=== PATIENT | male | born 1985 | race Caucasian/White ===

== ENCOUNTER 2025-01-26 15:38 | Inpatient (IN) | payer OTHER ==
[2025-01-26 16:13] VITALS: BMI 32.9
[2025-01-26] MEDS ORDERED: IBUPROFEN 400 MG TABLET (FP) PO PRN (16:31)
[2025-01-26] MEDS ORDERED: ACETAMINOPHEN 325 MG TABLET (FP) PO PRN (16:31)
[2025-01-26] MEDS ORDERED: MAG HYDROX/AL HYDROX/SIMETH 30 ML UNIT-DOSE CUP PO PRN (16:31)
[2025-01-26] MEDS ORDERED: LOPERAMIDE HCL 2 MG CAPSULE PO PRN (16:31)
[2025-01-26] MEDS ORDERED: NICOTINE POLACRILEX 2 MG GUM BUC PRN (16:31)
[2025-01-26] MEDS ORDERED: MAGNESIUM HYDROX 2400MG/30ML ORAL SUSPENSION 30 ML CUP PO PRN (16:31)
[2025-01-26] MEDS ORDERED: ONDANSETRON *ODT* 4 MG TABLET SL PRN (16:31)
[2025-01-26] MEDS ORDERED: BENZOCAINE/MENTHOL (CHLORASEPTIC ) LOZENGE MM PRN (16:31)
[2025-01-26] MEDS ORDERED: BENZONATATE 200 MG CAPSULE PO PRN (16:31)
[2025-01-26] MEDS ORDERED: IBUPROFEN 600 MG TABLET (FP) PO PRN (16:31)
[2025-01-26] MEDS ORDERED: POLYETHYLENE GLYCOL (HEALTHYLAX) 3350 17 GM PACKET PO PRN (16:31)
[2025-01-26] MEDS ORDERED: NALOXONE (NARCAN) HCL 4 MG/0.1 ML SPRAY NS PRN (16:31)
[2025-01-26] MEDS ORDERED: guaiFENesin 600 MG TABLET.ER (FP) PO PRN (16:31)
[2025-01-26] MEDS: chlordiazePOXIDE HCL 25 MG CAPSULE PO PRN (19:43)
[2025-01-26] MEDS: NALTREXONE HCL 50 MG TABLET PO ONE (19:44)
[2025-01-26] MEDS: chlordiazePOXIDE HCL 25 MG CAPSULE PO SCH (22:07)
[2025-01-26] MEDS: MELATONIN 5 MG TABLETS PO SCH (22:07)
[2025-01-26] MEDS: THIAMINE 100 MG TABLET PO SCH (22:07)
[2025-01-26] MEDS: TRIMETHOBENZAMIDE HCL 200MG/2ML INJ IM ONE (23:25)
[2025-01-26] MEDS: LORazepam 2 MG/ML SDV VIAL IM ONE (23:25)
[2025-01-27] MEDS: levETIRAcetam 500 MG TABLET (FP) PO SCH (00:07)
[2025-01-27] MEDS: NALTREXONE HCL 50 MG TABLET PO SCH (10:13)
[2025-01-27] MEDS: hydrOXYzine PAMOATE 25 MG CAPSULE (FP) PO PRN (10:13)
[2025-01-27] MEDS: METHOCARBAMOL 500 MG TABLET PO PRN (10:13)
[2025-01-27] MEDS: PRENATAL VITAMINS W/ FOLIC ACID TABLET (FP) PO SCH (10:51)
[2025-01-27] MEDS: amLODIPine BESYLATE 5 MG TABLET (FP) PO SCH (11:22)
[2025-01-27 11:57] LABS: HEMATOCRIT 46.8 % (35.4-49); HEMOGLOBIN 15.6 GM/dL (11.7-16.9); MCH 31.8 pg (25.7-33.7); MCHC 33.3 g/dl (32.0-35.9); MEAN CELL VOLUME 95.7 fl (80-96); MEAN PLT VOLUME 7.4 fl (7.5-11.1); PLATELET COUNT 193 10^3/uL (134-434); RBC 4.89 M/mm3 (4.00-5.60); RDW 13.6 % (11.9-15.9); WHITE BLOOD COUNT 9.4 K/mm3 (4.0-10.0)
[2025-01-27 11:59] LABS: CHLORIDE 99 mmol/L (98-107); POTASSIUM 3.8 mmol/L (3.5-5.1); SODIUM 139 mmol/L (136-145)
[2025-01-27 12:06] LABS: BLOOD UREA NITROGEN 9.2 mg/dL (7-18); CALCIUM 9.1 mg/dL (8.5-10.1)
[2025-01-27 12:07] LABS: ALBUMIN 3.7 g/dl (3.4-5.0); ANION GAP 10 mmol/L (4-13); CO2 29 mmol/L (21-32); GLUCOSE,RANDOM 134 mg/dL (74-106)
[2025-01-27 12:10] LABS: CREATININE 1.2 mg/dL (0.55-1.3); SGPT/ALT 202 U/L (13-61)
[2025-01-27 12:11] LABS: BILIRUBIN,TOTAL 0.8 mg/dL (0.2-1); SGOT/AST 158 U/L (15-37)
[2025-01-27 12:12] LABS: ALK PHOS 79 U/L (45-117); TOT PROT 7.5 g/dl (6.4-8.2)
[2025-01-27] MEDS: MIRTAZAPINE 15 MG TABLET (FP) PO SCH (22:07)
[2025-01-27 23:15] LABS: HIV INTERPRETATION NEGATIVE (NEGATIVE)
[2025-01-28] MEDS: chlordiazePOXIDE HCL 25 MG CAPSULE PO SCH (05:27)
[2025-01-29] MEDS ORDERED: chlordiazePOXIDE HCL 10 MG CAPSULE PO PRN
[2025-01-29] MEDS: chlordiazePOXIDE HCL 10 MG CAPSULE PO SCH (05:32)
[2025-01-29] MEDS: DICYCLOMINE HCL 10 MG CAPSULE PO PRN (10:24)
[2025-01-29] MEDS ORDERED: LORazepam 1 MG TABLET PO PRN (14:03)
[2025-01-29] MEDS: LORazepam 1 MG TABLET PO SCH (17:33)
[2025-01-29] MEDS: FAMOTIDINE 20 MG TABLET PO SCH (22:25)
[2025-01-30] MEDS ORDERED: chlordiazePOXIDE HCL 10 MG CAPSULE PO SCH (05:00)
[2025-01-30] MEDS: LORazepam 0.5 MG TABLET PO SCH (05:31)
[2025-01-30 17:16] VITALS: RESP 18
[2025-01-31] MEDS ORDERED: chlordiazePOXIDE HCL 10 MG CAPSULE PO ONE (05:00)
[2025-01-31] MEDS: BISMUTH SUBSALICYLATE 524 MG/30 ML PO PRN (05:54)
[2025-01-31] MEDS: LORazepam 0.5 MG TABLET PO ONE (05:54)
[2025-01-31 07:01] VITALS: TEMP 97.7
[2025-01-31 08:36] VITALS: BP 114/73; PULSE 83
== END 2025-01-31 09:09 | disposition home or self-care (01) | DRG 774 ==
LOC: YASAS 15:38 → Y6N 18:40
PROVIDERS: ADMIT Allergy & Immunology; ATTEND Allergy & Immunology
PROC: HZ2ZZZZ Detoxification Services for Substance Abuse Treatment (ICD-10-PCS; principal; 2025-01-26)
DX: F10.230 Alcohol dependence with withdrawal, uncomplicated (principal); F14.20 Cocaine dependence, uncomplicated; F17.210 Nicotine dependence, cigarettes, uncomplicated; F41.8 Other specified anxiety disorders; R03.0 Elevated blood-pressure reading, without diagnosis of hypertension; R79.89 Other specified abnormal findings of blood chemistry
CPT/HCPCS: 36415; 80053; 80305; 80307; 85027; 86780; 86803; 87389; 93005; 93010